=== PATIENT | female | born 1960 | race Caucasian/White ===

== ENCOUNTER 2020-08-16 12:39 | Outpatient (CLI) | payer BC, SELFPAY ==
--- NOTE | ~2020-08-16 | MM_ITS ---
EXAMINATION: MM screening [facility] BI [facility] l[facility] HISTORY: Screening TECHNIQUE: Craniocaudal and mediolateral oblique 3-D tomosynthesis images were obtained and synthetic 2-D images were generated. CAD analysis was submitted and interpreted. COMPARISON: Comparison to multiple prior studies sequentially, with oldest reviewed study dated 02/2016. BREAST PARENCHYMAL COMPOSITION: There are scattered areas of fibroglandular density. FINDINGS: There is no evidence of suspicious mass, calcification, or architectural distortion to sugg est malignancy in either breast. There has been no suspicious interval change. IMPRESSION: 1. No mammographic evidence of malignancy. 2. Recommend routine screening mammography in one year. BI-RADS Category 1: Negative Reviewed, dictated and finalized at location A.
== END 2020-08-16 12:40 | disposition home or self-care (01) ==
LOC: ANHIMG 12:43
PROVIDERS: PCP Internal Medicine; Visit Provider Obstetrics & Gynecology
DX: Z12.31 Encounter for screening mammogram for malignant neoplasm of breast (principal)
CPT/HCPCS: 77063; 77067

== ENCOUNTER 2021-10-18 14:25 | Outpatient (CLI) | payer BC, SELFPAY ==
[2021-10-18 18:48] LABS: Hematocrit 41.4 % (37.0-47.0); Hemoglobin 13.2 g/dL (12.0-15.0); Mean Corpuscular HGB Conc 31.9 g/dl (32-36); Mean Corpuscular Hemoglobin 32.1 pg (26-34); Mean Corpuscular Volume 100.7 fl (80-100); Mean Platelet Volume 10.9 fl (7.4-10.4); Platelet Count Result 299 k/mm3 (150-375); Red Blood Count 4.11 M/mm3 (4.2-5.4); White Blood Count 6.1 K/mm3 (4.5-10.0)
[2021-10-18 19:30] LABS: Vitamin D 25 Hydroxy 23.1 ng/mL
[2021-10-21 10:22] LABS: Testosterone Total 13 ng/dL (2-45)
== END 2021-10-18 14:26 | disposition home or self-care (01) ==
LOC: ANHASCLAB 14:27
PROVIDERS: PCP Internal Medicine; Visit Provider Obstetrics & Gynecology
DX: L65.9 Nonscarring hair loss, unspecified (principal)
CPT/HCPCS: 36415; 82306; 84403; 85027

== ENCOUNTER 2021-11-14 15:02 | Outpatient (CLI) | payer BC, SELFPAY ==
--- NOTE | ~2021-11-14 | MM_ITS ---
EXAMINATION: MM screening [facility] BI [facility] l[facility] HISTORY: Screening TECHNIQUE: Craniocaudal and mediolateral oblique 3-D tomosynthesis images were obtained and synthetic 2-D images were generated. CAD analysis was submitted and interpreted. COMPARISON: Comparison to multiple prior studies sequentially, with oldest reviewed study dated 09/2017. BREAST PARENCHYMAL COMPOSITION: There are scattered areas of fibroglandular density. FINDINGS: There is no evidence of suspicious mass, calcification, or architectural distortion to sugg est malignancy in either breast. There has been no suspicious interval change. IMPRESSION: 1. No mammographic evidence of malignancy. 2. Recommend routine screening mammography in one year. BI-RADS Category 1: Negative Reviewed, dictated and finalized at location A.
== END 2021-11-14 15:03 | disposition home or self-care (01) ==
LOC: ANHIMG 15:05
PROVIDERS: PCP Internal Medicine; Visit Provider Obstetrics & Gynecology
DX: Z12.31 Encounter for screening mammogram for malignant neoplasm of breast (principal); L65.9 Nonscarring hair loss, unspecified
CPT/HCPCS: 77063; 77067

== ENCOUNTER 2021-12-17 02:35 | Day surgery (SDC) | payer BC, SELFPAY ==
[2021-11-30 14:22] VITALS: BMI 29.5
[2021-12-17 10:04] VITALS: BP 118/70; PULSE 67; RESP 18; TEMP 36.2; O2SAT 99
[2021-12-17] MEDS: LACTATED RINGERS 1,000 ML 150 ML IV CONT (10:12)
--- NOTE | 2021-12-17 10:21 | WPDANESEPPF ---
Anes - Initial Pre Proc Eval Procedure: Operation Date: 12/17/21 11:00 Proposed Procedures p Screening Colonoscopy - Papi Garcia MD Date/Time: 12/17/21 10:21 Surgeon: Papi Garcia MD Pre Op Diagnosis: neoplasm screening Patient Data Age: 60 Gender: F Height: 1.63 m Weight: 79.7 kg Last Vital Signs Temp 97.1 F L 12/17/21 10:04 Pulse 67 12/17/21 10:04 Resp 18 12/17/21 10:04 BP 118/70 12/17/21 10:04 Pulse Ox 99 12/17/21 10:04 O2 Del Method Room Air 12/17/21 10:04 Allergies Allergy/AdvReac Type Severity Reaction Status Date / Time acetaminophen Allergy Unknown NAUSEA AND Verified 12/17/21 10:02 VOMITING cephalexin Allergy Unknown RASH Verified 12/17/21 10:02 propoxyphene Allergy Unknown NAUSEA AND Verified 12/17/21 10:02 VOMITING Home Medications Medication Instructions Recorded Confirmed Type tolterodine 4 mg capsule,extended 4 mg PO DAILY #90 caps 11/22/21 11/30/21 Rx release 24 hr Patient hx anesthesia problems: none Family hx anesthesia problems: none Results Review: All pre-operative results and documents have been reviewed as part of the pre-operative evaluation. [facility] Past Medical History Medical History (Updated 10/09/21 @ 17:20 by Lucho Dias MD) Cardiac arrhythmia (~2003) No significant past medical history Screening mammogram, encounter for Surgical History Surgical History H/O rhinoplasty H/O vein stripping (12/31/00) History of History of cardiac cath (05/02/04) negative History of D&C History of total abdominal hysterectomy (11/30/01) irregular bleeding History of tubal ligation Family History Family History Mother Cerebrovascular accident Heart disease Unknown Cancer Father Heart disease Grandparent Carcinoma of colon grandfather Diabetes mellitus grandmother Social History Social History (Updated 10/09/21 @ 16:48 by ZEE Garcia) Smoking status: Never smoker Alcohol intake: current Drinks per week: 10 Substance use: never Substance use type: does not use Living arrangements: with family Additional living arrangements comments: Additional occupation/education comments: RN Gender identity (if verbalized by the patient): Female Sexual Orientation (if Verbalized by the Patient): Straight or Heterosexual Spiritual care concerns: No Anes - Eval Final PreProcedure Day of Procedure 12/17/21 10:21 Patient weight: obese Heart: regular rate and rhythm Lungs: clear to auscultation Airway: Mallampati scale class II Neurological: alert and oriented Last oral intake: >/= 8 hours ASA classification: II Emergent: no Anesthetic plan: proceed Anesthesia type and monitoring: general GIVS and standard monitoring Results Review: All pre-operative results and documents have been reviewed as part of the pre-operative evaluation. Informed Consent: The patient's anesthetic plan and its attendant risks and benefits were discussed with the patient/family/POA. Questions were solicited and answers provided to the satisfaction of the patient/family/POA.
--- NOTE | 2021-12-17 10:34 | PM.HPGS ---
History of Present Illness History of Present Illness Consent: Risks, benefits, and alternatives have been discussed and questions answered. Patient agrees to proceed with procedure. Chief complaint: neoplasm screening Narrative: Tianna Cheung is a 60 year old female here for screening colonoscopy, last one 7 years ago. Review of Systems Constitutional: Constitutional: Denies headache(s) and Denies weakness Eyes: Eyes: Denies blurry vision ENT: Reports Normal hearing present, Denies headache(s) and Denies neck pain Cardiovascular: Cardiovascular: Denies chest pain and Denies dyspnea Respiratory: Respiratory: Denies dyspnea Gastrointestinal: Gastrointestinal: Reports no additional gastrointestinal complaints Genitourinary: Genitourinary: Denies dysuria Musculoskeletal: Musculoskeletal: Denies neck pain Integumentary/Breasts: Skin/Breast: Denies dry skin Neurologic: Reports Normal hearing present, Denies headache(s) and Denies weakness Psychiatric: Psychiatric: Denies anxiety Endocrine: Endocrine: Denies change in body appearance Hematologic/Lymphatic: Hematologic/Lymphatic: Denies easy bleeding Allergic/Immunologic: Allergic/Immunologic: Denies urticaria PMFSH Past Medical History Medical History (Updated 12/17/21 @ 10:34 by Papi Garcia MD) Cardiac arrhythmia (~2003) Colon cancer screening No significant past medical history Screening mammogram, encounter for Surgical History Surgical History H/O rhinoplasty H/O vein stripping (12/31/00) History of History of cardiac cath (05/02/04) negative History of D&C History of total abdominal hysterectomy (11/30/01) irregular bleeding History of tubal ligation Family History Family History Mother Cerebrovascular accident Heart disease Unknown Cancer Father Heart disease Grandparent Carcinoma of colon grandfather Diabetes mellitus grandmother Social History Social History (Updated 10/09/21 @ 16:48 by ZEE Garcia) Smoking status: Never smoker Alcohol intake: current Drinks per week: 10 Substance use: never Substance use type: does not use Living arrangements: with family Additional living arrangements comments: Additional occupation/education comments: RN Gender identity (if verbalized by the patient): Female Sexual Orientation (if Verbalized by the Patient): Straight or Heterosexual Spiritual care concerns: No Meds Home Medications and Allergies Home Medications Medication Instructions Recorded Confirmed Type tolterodine 4 mg capsule,extended 4 mg PO DAILY #90 caps 11/22/21 11/30/21 Rx release 24 hr Allergies Allergy/AdvReac Type Severity Reaction Status Date / Time acetaminophen Allergy Unknown NAUSEA AND Verified 12/17/21 10:02 VOMITING cephalexin Allergy Unknown RASH Verified 12/17/21 10:02 propoxyphene Allergy Unknown NAUSEA AND Verified 12/17/21 10:02 VOMITING Vital Signs Vital Signs - 24 hr 12/17/21 10:04 Temperature 97.1 F L Pulse Rate 67 Respiratory Rate 18 Blood Pressure 118/70 Pulse Oximetry 99 Oxygen Delivery Room Air Exam Const: General: comfortable and no acute distress HENMT: General nose exam: Normal nares present Eyes: General: appearance normal, both eyes and all related structures Neck: Neck: no JVD Resp: Auscultation: clear to auscultation bilaterally Cardio: Rate: regular rate Rhythm: regular rhythm GI: Inspection: non-distended GI Palp: Yes Soft to palpation Skin: General skin exam: normal color Neuro: General: gait normal Speech: normal speech Extrem: General: normal to inspection Psych: Mental Status: mental status grossly normal Assessment and Plan Assessment and plan (1) Colon cancer screening: Code(s): Z12.11 - Encount
[2021-12-17 10:58] VITALS: BP 102/64; PULSE 69; RESP 15; O2SAT 96
[2021-12-17 11:08] VITALS: BP 108/73; PULSE 100; RESP 18; O2SAT 100
[2021-12-17 11:18] VITALS: BP 114/74; PULSE 80; RESP 18; O2SAT 100
== END 2021-12-17 11:25 | disposition home or self-care (01) ==
PROVIDERS: PCP Internal Medicine; Visit Provider Internal Medicine Gastroenterology
PROC: 0DJD8ZZ Inspection of Lower Intestinal Tract, Via Natural or Artificial Opening Endoscopic (ICD-10-PCS; CPT 45378; principal; 2021-12-17 11:00)
DX: Z12.11 Encounter for screening for malignant neoplasm of colon (principal); I49.9 Cardiac arrhythmia, unspecified; E66.9 Obesity, unspecified; Z68.30 Body mass index [BMI] 30.0-30.9, adult
CPT/HCPCS: 45378; J2704; J7120

== ENCOUNTER 2022-06-11 15:13 | Outpatient (CLI) | payer BC, SELFPAY ==
[2022-06-11 15:41] LABS: Rheumatoid Factor < 12.0 IU/ML (<12)
[2022-06-11 15:42] LABS: CRP < 0.5 mg/dL (<1.0)
[2022-06-11 15:49] LABS: Erythrocyte Sedimentation Rate 13 mm/hr (0-20)
== END 2022-06-11 15:14 | disposition home or self-care (01) ==
PROVIDERS: PCP Internal Medicine; Visit Provider Podiatrist Foot & Ankle Surgery
DX: M19.90 Unspecified osteoarthritis, unspecified site (principal); M06.9 Rheumatoid arthritis, unspecified
CPT/HCPCS: 36415; 84550; 85652; 86038; 86140; 86430; 86812

== ENCOUNTER 2022-12-09 10:40 | Outpatient (CLI) | payer BC, SELFPAY ==
--- NOTE | ~2022-12-09 | US_ITS ---
Abdominal Sonogram: Real-time sonographic imaging of the abdomen was performed. Clinical History: Epigastric pain Findings: The liver appears normal with no evidence of mass lesion or bile duct dilatation. Main por danyell vein demonstrates normal direction of flow. The spleen is normal in size without evidence of foca l lesion. The gallbladder is well distended, and contains echogenic, shadowing gallstones. No gallbl adder wall thickening. The common bile duct measures 4 mm. The visualized pancreas, aorta, and IVC a re unremarkable. The right kidney measures 12.1 cm in length and the left kidney measures 12.0 cm. There is no hydronephrosis or renal calculus. Impression: Cholelithiasis. Reviewed, dictated and finalized at location . Impression: Cholelithiasis.
== END 2022-12-09 10:41 | disposition home or self-care (01) ==
PROVIDERS: PCP Internal Medicine; Visit Provider Internal Medicine
DX: R10.13 Epigastric pain (principal); K80.20 Calculus of gallbladder without cholecystitis without obstruction
CPT/HCPCS: 76700

== ENCOUNTER 2023-01-07 14:06 | Outpatient (CLI) | payer BC, SELFPAY ==
[2023-01-07 19:03] LABS: Alanine Aminotransferase 28 U/L (6-35); Albumin Level 4.4 g/dL (3.5-5.1); Alkaline Phosphatase 41 U/L (38-126); Amylase 93 U/L (30-110); Aspartate Amino Transferase 38 U/L (14-36); Bilirubin,Total 0.5 mg/dL (0.2-1.3); Lipase 114 U/L (23-300)
== END 2023-01-07 14:07 | disposition home or self-care (01) ==
LOC: ANHASCIMG 14:07 → ANHASCLAB 14:15
PROVIDERS: PCP Internal Medicine; Visit Provider Surgery
DX: K80.10 Calculus of gallbladder with chronic cholecystitis without obstruction (principal); Z01.818 Encounter for other preprocedural examination
CPT/HCPCS: 36415; 80076; 82150; 83690

== ENCOUNTER 2023-01-13 15:18 | Outpatient (CLI) | payer BC, SELFPAY ==
--- NOTE | ~2023-01-13 | MM_ITS ---
EXAMINATION: MM screening [facility] BI w luis HISTORY: Screening TECHNIQUE: Craniocaudal and mediolateral oblique 3-D tomosynthesis images were obtained and synthetic 2-D images were generated. CAD analysis was submitted and interpreted. COMPARISON: Comparison to multiple prior studies sequentially, with oldest reviewed study dated 09/2017. BREAST PARENCHYMAL COMPOSITION: There are scattered areas of fibroglandular density. FINDINGS: There is no evidence of suspicious mass, calcification, or architectural distortion to sugg est malignancy in either breast. There has been no suspicious interval change. IMPRESSION: 1. No mammographic evidence of malignancy. 2. Recommend routine screening mammography in one year. BI-RADS Category 1: Negative Reviewed, dictated and finalized at location A.
== END 2023-01-13 15:19 | disposition home or self-care (01) ==
LOC: ANHIMG 15:22
PROVIDERS: PCP Internal Medicine; Visit Provider Obstetrics & Gynecology
DX: Z12.31 Encounter for screening mammogram for malignant neoplasm of breast (principal)
CPT/HCPCS: 77063; 77067

== ENCOUNTER 2023-01-15 00:55 | Day surgery (SDC) | payer BC, SELFPAY ==
[2023-01-07 13:18] VITALS: BMI 29.5
--- NOTE | 2023-01-07 13:26 | PC.NURSE ---
Report to the Outpatient Waiting Room, entrance under the green pavilion located off [facility], at time _0900 on date _01/15/23_. Planned Procedure Time: _1100 _. Time changes happen often and if your time is changed the preop area will call you the afternoon before. - You and your visitor will be asked to self-screen and do not enter if you have any COVID symptoms. - A mask is optional within the hospital at this time. Patients may have clear liquids (water, carbonated beverages, clear teas, apple juice) until 3 hours prior to surgery with a maximum of 20 ounces. - No food from midnight until time of surgery - Infants may have breast milk until 4 hours before surgery, infant formula 6 hours prior to surgery. - Children will be allowed to drink immediately following surgery. If applicable, please bring a bottle or sippy cup to assist with drinking. Juice, water, soda, and popsicles are readily available. For infants on formula, please bring formula the day of surgery. Pacifiers are allowed. Take the following medications with a SIP of water the morning of surgery: NONE DO NOT STOP ANY OF YOUR OTHER PRESCRIPTION MEDICATIONS PRIOR TO SURGERY ?EXCEPT THE FOLLOWING Medications to discontinue per physician MELATONIN Date to take last dose 01/12/23 Please no make-up, nail togolese, hairspray, perfume, deodorant, or body powder the day of surgery. No jewelry (including any body piercings) or valuables the day of surgery, leave them at home. Please take a shower or bath the night before, or the morning of, surgery with HIBICLENS antibacterial soap. Wear comfortable, loose fitting clothing. Children are encouraged to wear pajamas. - Jewelry must be removed prior to entering the operating room. Rings and piercings that are not removed may be cut off. - The hospital will not accept responsibility for valuables. - Please leave all valuables, including medications, at home the day of surgery. If you are going home after surgery, a licensed rear load truck driver must drive you home. - NO public transportation without another adult if you receive anesthesia. - We recommend that an adult stay with you for 24 hours following discharge. - We also recommend that you do not drive, make important decision, drink alcoholic beverages, or take any drugs that were not prescribed by your health care provider for at least 24 hours after your discharge time. For Pediatric surgeries, we recommend two adults accompany the child home. Follow any additional instructions given to you from your surgeon. If you or anyone in your household have experienced Covid symptoms in the past week, please notify your surgeon or the nurse liaison at the phone number below for possible testing. Telephone instructions given to PATIENT__and asked if any additional questions and then verbalized understanding. Patient advised to call surgeon office or pre surgery nurse liaison [phone] if any additional questions.
[2023-01-15] VITALS (9 sets, daily range): BP systolic 110–129; BP diastolic 53–94; PULSE 67–92; RESP 12–16; TEMP 36.2–36.3; O2SAT 92–100
--- NOTE | 2023-01-15 08:53 | ECG_ITS ---
Measurements Intervals [place] Rate: 61 P: 36 OR: 171 QRS: 13 QRSD: 93 T: 31 QT: 422 QTc: 428 Interpretive Statements SINUS RHYTHM NO PREVIOUS ECG AVAILABLE FOR COMPARISON Electronically Signed On 01-15-2023 15:22:21 CDT by Carloz Reid M.D.
[2023-01-15] MEDS: ACETAMINOPHEN 500 MG TABLET 1000 MG PO (09:21)
--- NOTE | 2023-01-15 09:37 | WPDHPUPDATE1 ---
History and Physical Update Update Date/Time: 01/15/23 09:37 History and Physical has been reviewed, including an updated exam of the patient. There are NO changes in the patient's condition. Risks, benefits, and alternatives have been discussed and questions answered. Patient agrees to proceed with procedure.
[2023-01-15] MEDS: KETOROLAC 15 MG/ML VIAL (*BKC) IV PUSH (09:46)
--- NOTE | 2023-01-15 10:44 | WPDANESEPPF ---
Anes - Initial Pre Proc Eval Procedure: Operation Date: 01/15/23 11:00 Proposed Procedures p Laparoscopic Cholecystectomy - Gume Little MD Date/Time: 01/15/23 10:44 Surgeon: Gume Little MD Pre Op Diagnosis: chronic cholecystitis with stones Patient Data Age: 62 Gender: F Height: 1.63 m Weight: 77.2 kg Last Vital Signs Temp 36.3 C L 01/15/23 09:27 Pulse 70 01/15/23 09:27 Resp 16 01/15/23 09:27 BP 110/71 01/15/23 09:27 Pulse Ox 96 01/15/23 09:27 O2 Del Method Room Air 01/15/23 09:27 Allergies Allergy/AdvReac Type Severity Reaction Status Date / Time cephalexin Allergy Unknown RASH Verified 01/15/23 09:18 propoxyphene AdvReac Unknown NAUSEA AND Verified 01/15/23 09:18 VOMITING Home Medications Medication Instructions Recorded Confirmed Type tolterodine 4 mg capsule,extended 4 mg PO DAILY #90 caps 11/22/21 01/15/23 Rx release 24 hr melatonin 5 mg chewable tablet 5 mg PO HS 01/07/23 01/15/23 History Patient hx anesthesia problems: post op nausea/vomiting Family hx anesthesia problems: none Results Review: All pre-operative results and documents have been reviewed as part of the pre-operative evaluation. [facility] Past Medical History Medical History Cardiac arrhythmia (~2003) Colon cancer screening No significant past medical history Screening mammogram, encounter for Surgical History Surgical History H/O rhinoplasty H/O vein stripping (12/31/00) History of History of cardiac cath (05/02/04) negative History of D&C History of total abdominal hysterectomy (11/30/01) irregular bleeding History of tubal ligation Family History Family History Mother Cerebrovascular accident Heart disease Unknown Cancer Father Heart disease Grandparent Carcinoma of colon grandfather Diabetes mellitus grandmother Social History Social History Smoking status: Never smoker Alcohol intake: current Drinks per week: 8 Alcohol use details: WINE Substance use: never Substance use type: does not use Living arrangements: with family Additional living arrangements comments: Occupation/Education: occupation Additional occupation/education comments: RN Gender identity (if verbalized by the patient): Female Sexual Orientation (if Verbalized by the Patient): Straight or Heterosexual Spiritual care concerns: No Anes - Eval Final PreProcedure Day of Procedure 01/15/23 10:44 Patient weight: overweight Heart: regular rate and rhythm Lungs: clear to auscultation Airway: Mallampati scale class II Neurological: alert and oriented Last oral intake: >/= 8 hours ASA classification: II Emergent: no Anesthetic plan: proceed Anesthesia type and monitoring: general ETT and standard monitoring Results Review: All pre-operative results and documents have been reviewed as part of the pre-operative evaluation. Informed Consent: The patient's anesthetic plan and its attendant risks and benefits were discussed with the patient/family/POA. Questions were solicited and answers provided to the satisfaction of the patient/family/POA.
[2023-01-15] MEDS: SCOPOLAMINE 1.5 MG PATCH TRANSDERM (10:51)
[2023-01-15] MEDS: LACTATED RINGERS 1,000 ML 30 ML IV CONT (10:51)
[2023-01-15] MEDS: CLINDAMYCIN 900 MG/D5W 50 ML 900 MG/50 ML PIGGYBACK 50 MG IVPB (10:58)
--- NOTE | 2023-01-15 11:57 | P.OP_ITS ---
Procedure Note - Detailed Date of Procedure 01/15/23 Pre-op Diagnosis chronic cholecystitis with stones Post-op Diagnosis Same Procedure Performed Laparoscopic cholecystectomy Surgeon Gume Little MD [employer] CLAIMS ASSISTANT Anesthesia General and Local (0.25% Marcaine with epinephrine) Indications Patient has had postprandial epigastric pain that radiates to her back. Her imaging showed gallstones. She is taken to surgery now for laparoscopic cholecystectomy. Findings Patient had multiple gallstones in the gallbladder. Gallbladder wall was slightly thickened. It was evidence of chronic inflammation. There was no bi liary ductal dilatation. There were no liver abnormalities. Description of Procedure Patient was taken to surgery and induced into general anesthesia. The abdomen is prepped draped. Trocars were placed in the usual fashion using [employer] optical trocars and a 5 mm camera. The gallbladder was freed from omental adhesions. A laparoscopic aspirator was used and the gallbladder was decompressed. It was evident there were multiple stones in the gallbladder. The cholecystotomy was closed with a Vicryl endoloop. The gallbladder was then retracted anterosuperiorly. The remaining adhesions to the gallbladder were taken down using cautery and sharp dissection. Eventually the gallbladder was completely freed from adhesions. Traction was placed on the infundibulum. Dissection was then carried out in the cholecystohepatic triangle. The cystic duct and cystic artery were dissected out very clearly. The gallbladder was dissected off the liver at its lower 3rd. Critical view was achieved. We then securely clipped and divided the cystic duct and cystic artery. The gallbladder was then further dissected free of its remaining peritoneal attachments to the liver. Cautery was used for hemostasis. The gallbladder was then placed in an Endo-Catch bag. It was retrieved through the 10 11 epigastric trocar. I had to dilate the trocar sites slightly to accommodate the multiple stones in the gallbladder with its somewhat thickened wall. Once the gallbladder was removed, we replaced the epigastric trocar. We reinsufflated and reviewed the right upper quadrant. Some suctioning and irrigation were performed. Hemostasis looked very good. There was no evidence of bile leak. We then evacuated CO2 and removed the trocar sleeves. The fascia at the epigastric trocar site was closed with [id number] mattress sutures of 0 Vicryl. Subcutaneous sutures of 3-0 Vicryl were placed. All skin wounds were closed with subcuticular 4-0 Monocryl skin suture. The wounds were dressed with Exofin surgical adhesive. The patient was awakened and taken to recovery in good condition. Sponge needle counts were correct x2. Estimated Blood Loss -5 Drains No Packing No Pathology Yes (Gallbladder) Complications No immediate complications Condition Stable Disposition PACU [facility] Billing Surgery - Charge Forward: Surgery Billing (Laparoscopic cholecystectomy)
[2023-01-15] MEDS: oxyCODONE HCL (*CRX) 5 MG TAB IR PO (13:30)
[2023-01-15] MEDS: ONDANSETRON INJ 4 MG/2 ML VIAL IV PUSH (13:59)
== END 2023-01-15 14:10 | disposition home or self-care (01) ==
PROVIDERS: PCP Internal Medicine; Visit Provider Surgery
PROC: 0FT44ZZ Resection of Gallbladder, Percutaneous Endoscopic Approach (ICD-10-PCS; CPT 47562; principal; 2023-01-15 11:00)
DX: K80.10 Calculus of gallbladder with chronic cholecystitis without obstruction (principal)
CPT/HCPCS: 47562; 36415; 80076; 82150; 83690; 86850; 86900; 86901; 88304; 93005; A9270; C1713; J1100; J1170; J1885; J2250; J2405; J2704; J3010; J7120

== ENCOUNTER 2023-02-27 15:52 | Outpatient (CLI) | payer BC, SELFPAY ==
--- NOTE | ~2023-02-27 | MR_ITS ---
EXAMINATION: MR ankle LT wo con DATE: 02/27/2023 16:32 INDICATION: Left ankle tendinopathy. Left ankle pain and swelling. TECHNIQUE: Magnetic resonance imaging (MRI) of the left ankle was performed without intravenous contr ast. Sequences included sagittal PD-weighted FS FSE, sagittal PD-weighted FSE, coronal PD-weighted FS FSE, coronal PD-weighted FSE, axial PD-weighted FS FSE, and axial PD-weighted FSE. COMPARISON: None. FINDINGS: Medial ankle ligaments: The superficial and deep components of the deltoid ligament are normal. Lateral ankle ligaments: Anterior and posterior talofibular ligaments, calcaneofibular ligament, and anterior and posterior ti biofibular ligaments are intact. Tendons: The medial and anterior ankle tendons are normal. There is a longitudinal split tear of peroneus brev is tendon. There is mild peroneus longus tendinopathy. There is non-insertional Achilles tendinopathy characterized by enlargement and increased signal intensity with small partial tear. A skin marker o verlies the Achilles tendon. Plantar fascia: Normal. There is an enthesophyte at the calcaneal attachment. Bones/other: Bone alignment is normal. There is mild ankle joint osteoarthritis. Fluid: There is a small subtalar joint effusion. IMPRESSION: 1. Non-insertional Achilles tendinopathy and small partial tear. 2. Longitudinal split tear of peroneus brevis tendon. 3. Mild ankle joint osteoarthritis. Reviewed, dictated and finalized at location E.
== END 2023-02-27 15:53 ==
PROVIDERS: PCP Podiatrist Foot & Ankle Surgery; Visit Provider Podiatrist Foot & Ankle Surgery
DX: M76.62 Achilles tendinitis, left leg (principal); M19.072 Primary osteoarthritis, left ankle and foot
CPT/HCPCS: 73721

== ENCOUNTER 2024-03-02 15:51 | Outpatient (CLI) | payer BC, SELFPAY ==
--- NOTE | ~2024-03-02 | MM_ITS ---
EXAMINATION: MM screening [facility] HISTORY: Screening TECHNIQUE: Craniocaudal and mediolateral oblique 3-D tomosynthesis images were obtained and synthetic 2-D images were generated. CAD analysis was submitted and interpreted. COMPARISON: Comparison to multiple prior studies sequentially, with oldest reviewed study dated 05/03. BREAST PARENCHYMAL COMPOSITION: Not dense: There are scattered areas of fibroglandular density. FINDINGS: There is no evidence of suspicious mass, calcification, or architectural distortion to sugg est malignancy in either breast. There has been no suspicious interval change. IMPRESSION: 1. No mammographic evidence of malignancy. 2. Recommend routine screening mammography in one year. BI-RADS Category 1: Negative Reviewed, dictated and finalized at location B.
== END 2024-03-02 15:52 | disposition home or self-care (01) ==
LOC: ANHIMG 15:54
PROVIDERS: PCP Podiatrist Foot & Ankle Surgery; Visit Provider Obstetrics & Gynecology
DX: Z12.31 Encounter for screening mammogram for malignant neoplasm of breast (principal)
CPT/HCPCS: 77063; 77067

== ENCOUNTER 2024-03-09 12:57 | Outpatient (CLI) | payer BC, SELFPAY ==
[2024-03-09 18:52] LABS: Basophils Percent Auto 0.5 % (0.2-1.2); Eosinophils Percent Auto 0.5 % (0-4.4); Hematocrit 39.9 % (37.0-47.0); Hemoglobin 12.9 g/dL (12.0-15.0); Immature Granulocyte Absolute 0.02 K/mm3 (0.00-0.031); Immature Granulocyte Percent A 0.3 % (0-0.5); Lymphocytes Percent Auto 28.9 % (18.3-44.2); Mean Corpuscular HGB Conc 32.3 g/dl (32-36); Mean Corpuscular Hemoglobin 32.4 pg (26-34); Mean Corpuscular Volume 100.3 fl (80-100); Mean Platelet Volume 10.5 fl (7.4-10.4); Monocytes Absolute Auto 0.4 K/mm3 (0.1-0.6); Monocytes Percent Auto 6.6 % (2.6-8.5); Neutrophils Absolute Auto 3.9 K/mm3 (1.3-6.7); Neutrophils Percent Auto 63.2 % (45.5-73.1); Platelet Count Result 325 k/mm3 (150-375); Red Blood Count 3.98 M/mm3 (4.2-5.4); Red Cell Distribution Width 12.9 % (11.5-14.5); White Blood Count 6.2 K/mm3 (4.5-10.0)
[2024-03-09 19:04] LABS: Alanine Aminotransferase 25 U/L (6-35); Albumin Level 4.2 g/dL (3.5-5.1); Alkaline Phosphatase 49 U/L (38-126); Anion Gap 5 mmol/L (4-12); Aspartate Amino Transferase 43 U/L (14-36); Bilirubin,Total 0.7 mg/dL (0.2-1.3); Blood Urea Nitrogen 21 mg/dL (7-17); Carbon Dioxide 31 mmol/L (22-30); Chloride 101 mmol/L (98-107); Estimated Glomerular Filt Rate > 60; Glucose 90 mg/dL (65-110); Potassium 4.3 mmol/L (3.4-5.0); Sodium 137 mmol/L (137-145)
[2024-03-09 19:04] LABS: Add Urine Microscopic? NO; Appearance Urine Clear (Clear); Bilirubin Urine Negative (Negative); Blood Urine Negative (Negative); Color Urine Yellow (Yellow); Glucose Urine UA Negative (Negative); Ketones Urine Negative (Negative); Leukocyte Esterase Ur Negative LEU/UL (Negative); Nitrate Urine Negative (Negative); Protein Urine Negative (Negative); Urobilinogen Urine 0.2 mg/dL (<2.0)
== END 2024-03-09 12:58 | disposition home or self-care (01) ==
LOC: ANHASCLAB 13:01
PROVIDERS: PCP Podiatrist Foot & Ankle Surgery; Visit Provider Internal Medicine
DX: E66.3 Overweight (principal)
CPT/HCPCS: 36415; 80053; 81003; 84443; 85025

== ENCOUNTER 2025-03-16 12:28 | Outpatient (CLI) | payer BC, SELFPAY ==
--- NOTE | ~2025-03-16 | MM_ITS ---
EXAMINATION: MM screening mercedes BI w luis HISTORY: Screening TECHNIQUE: Craniocaudal and mediolateral oblique 3-D tomosynthesis images were obtained and synthetic 2-D images were generated. CAD analysis was submitted and interpreted. COMPARISON: 01/13/2023 BREAST PARENCHYMAL COMPOSITION: There are scattered areas of fibroglandular density. FINDINGS: There is no evidence of suspicious mass, calcification, or architectural distortion to suggest malignancy. There has been no suspicious interval change. IMPRESSION: 1. No mammographic evidence of malignancy. Recommend routine screening mammography in one year. BI-RADS Category 2: Benign finding(s) Reviewed, dictated and finalized at location Q. IMPRESSION: 1. No mammographic evidence of malignancy. Recommend routine screening mammogra phy in one year. BI-RADS Category 2: Benign finding(s)
--- OUTSIDE RECORDS SUMMARY | 2025-03-16 14:08 | XMS_ITS | Encounter Summary ---
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 Name Role Phone Cornel Dunn MD Primary Care Provider [phone] Encounter Details Date Type Department Care Team (Latest Contact Info) Description 02/11/2025 Results Follow-Up [facility] [address] [place] [address] Cornel Dunn MD [facility] [address] [place] [address] CBC with auto differential, Comprehensive metabolic panel, TSH, Additional followed-up results: 2 Social History Tobacco Use Types Packs/Day Years Used Date Smoking Tobacco: Never Comments Unknown Sex and Gender Information Value Date Recorded Sex Assigned at Not on file Legal Sex Female 7:22 PM C[employer]UL[employer] Gender Identity Not on file Sexual Orientation Not on file documented as of this encounter Plan of Treatment Scheduled Procedures Name Priority Associated Diagnoses Date/Ti me COLONOSCOPY History of colon polyps documented as of this encounter Visit Diagnoses Not on filedocumented in this encounter Care Teams Set Up Mechanic Stamping Mach[employer] Relationship Specialty Start Date End Date Cornel Dunn MD PCP - General 10/06/14 documented as of this encounter
--- OUTSIDE RECORDS SUMMARY | 2025-03-16 14:08 | XMS_ITS | Clinical Summary ---
Author Organization [facility] [address] Address [address] [place] [address] Care Team Providers Care Tire Repairer Name Role Phone Cornel Dunn MD Primary Care Provider [phone] Allergies Active Allergy Reactions Criticality Noted Date Comments Cephalexin Rash Medium Propoxyphene N-Acetaminophen Vomiting Low 021 Medications tolterodine LA (DETROL LA) 4 mg 24 hr capsule tolterodine ER 4 mg capsule,extended release 24 hr take 1 tablet by mouth daily Active semaglutide (Wegovy) 1 mg/0.5 mL auto-injector INJECT 1 MG UNDER THE SKIN EVERY 7 DAYS 2 mL 3 5 Active Active Problems No known active problems Encounters Date Type Department Care Team Description 02/11/2025 Results Follow-Up [facility] [address] [place] [id number] Cornel Dunn MD CBC with auto differential, Comprehensive metabolic panel, TSH, Additional followed-up results: 2 02/10/2025 6:07 PM CDT - 02/10/2025 11:59 PM CDT Hospital Encounter [address] [address] Routine general medical examination at a health care facility; Encounter for hepatitis C screening test for low risk patient Discharge Disposition: Discharge to home or self care 02/10/2025 2:00 PM CDT Office Visit [facility] [address] [place] [address] [place] [address] Cornel Dunn MD Routine general medical examination at a health care facility (Primary Dx); Encounter for hepatitis C screening test for low risk patient from Last 3 Months Immunizations Immunization Administration Dates Next Due COVID-19 mRNA (PFIZER) 0.3 m L (30 mcg) vaccine (12 years and up) 06/13/2023 Pfizer SARS-CoV-2 Monovalent Vaccination (12+ Yrs) PURPLE 07/23/2020,06/25/2020 Tdap 02/10/2025 ZOSTER Recombinant 06/13/2023,11/19/2022 Surgical History Surgery Date Site/Laterality Comments TOTAL ABDOMINAL HYSTERECTOMY Hysterectomy, total NOSE SURGERY VEIN LIGATION AND STRIPPING SECTION Medical History Medical History Date Comments Asthma Asthma Hx Other Medical X2 1983 and 01/1994 Hx Other Medical Rhinoplasty 197 9 Urinary frequency Family History Medical History Relation Name Comments Heart disease Father Hyperlipidemia Mother Mitral valve prolapse Mother Stroke Mother Heart disease Other Family history of Heart problems; Relation Name Status Comments Father Mother Other Social History Tobacco Use Types Packs/Day Years Used Date Smoking Tobacco: Never Tobacco Cessation:Counseling Given: Not Answered Comments Unknown Sex and Gender Information Value Date Recorded Sex Assigned at Not on file 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 Gender Identity Not on file Sexual Orientation Not on file Obstetrics History Last Filed Vital Signs Vital Sign Reading Time Taken Comments Blood Pressure 110/72 02/10/2025 1:57 PM CDT Pulse 89 02/10/2025 1:57 PM CDT Temperature - - Respiratory Rate - - Oxygen Saturation - - Inhaled Oxygen Concentration - - Weight 70.3 kg (155 lb) 02/10/2025 1:57 PM CDT Height 162.6 cm (5' 4) 02/10/2025 1:57 PM CDT Body Mass Index 26.61 02/10/2025 1:57 PM CDT Plan of Treatment Scheduled Procedures Name Priority Associated Diagnoses Date/Ti me COLONOSCOPY History of colon polyps Health Maintenance Due Date Last Done Comments Depression Screening 1960 Hepatitis B Screening 1978 Covid-19 Vaccine ( season) 2025 06/13/2023, 05/09/2021, 07/23/2020, Additional history exists Influenza Vaccine (#1) 2025 Breast Cancer Screening-Mammogram 03/02/2025 03/02/2024, 06/11/2020 Regular Well Visit/Exam 18-64 02/10/2026 02/10/2025, 01/09/2021 Colon Cancer Screening-Colonoscopy 12/18/2031 12/17/2021 DTaP/Tdap/Td Vaccine (2 - Td or Tdap) 02/10/2035 02/10/2025 Zoster Vaccine Completed 06/13/2023, 11/19/2022 Hepatitis C Screening Completed 02/10/2025 Pneumococcal vaccine <65 Aged Out No longer eligible based on patient's age to complete this topic Procedures Procedure Name Priority Date/Time Associated Diagnosis Comments LIPID PANEL Routine 02/10/2025 2:32 PM CDT Routine general medical examination at a health care facility Encounter for hepatitis C screening test for low risk patient TSH Routine 02/10/2025 2:32 PM CDT Routine general medical examination at a health care facility Encounter for hepatitis C screening test for low risk patient COMPREHENSIVE METABOLIC PANEL Routine 02/10/2025 2:32 PM CDT Routine general medical examination at a health care facility Encounter for hepatitis C screening test for low risk patient CBC WITH AUTO DIFFERENTIAL Routine 02/10/2025 2:32 PM CDT Routine general medical examination at a health care facility Encounter for hepatitis C screening test for low risk patient HEPATITIS C ANTIBODY Routine 02/10/2025 2:32 PM CDT Routine general medical examination at a health care facility Encounter for hepatitis C screening test for low risk patient URINALYSIS AND REFLEX TO MICROSCOPIC AND CULTURE Routine 02/10/2025 2:32 PM CDT Routine general medical examination at a health care facility Encounter for hepatitis C screening test for low risk patient SCREENING MAMMOGRAM 2D BILATERAL Schedule Routine, Read Routine (OP Routine) 06/11/2020 from Last 3 Months or Most Recently Relevant to Health Maintenance Results * CBC with auto differential (02/10/2025 2:32 PM CDT) Pathologist [facility] WBC 6.4 3.5 - 10.0 K/uL [facility] RBC 4.03 3.50 - 5.50 M/uL [facility] Hemoglobin 12.8 11.5 - 16.5 g/dL [facility] Hematocrit 37.5 35.0 - 55.0 % [facility] MCV 93.0 75.0 - 100.0 fL [facility] MCH 31.80 25.00 - 35.00 pg [facility] MCHC 34.10 31.00 - 38.00 g/dL [facility] RDW 13.1 11.0 - 16.0 % [facility] Platelets 325 140 - 400 K/uL [facility] MPV 8.8 8.0 - 11.0 fL [facility] Granulocyte, Absolute 4.3 1.2 - 8.0 K/uL [facility] Lymphocyte, Absolute 1.7 0.5 - 5.0 K/uL [facility] Monocyte, Absolute 0.4 0.1 - 1.5 K/uL [facility] Granulocyte, Percentage 67.2 35.0 - 80.0 % [facility] Lymphocyte, Percentage 26.9 15.0 - 50.0 % [facility] Monocyte, Percentage 5.9 2.0 - 15.0 % [facility] Blood 02/10/2025 2:32 PM CDT 02/10/2025 2:59 PM CDT us Cornel Dunn MD LAB BLOOD ORDERABLES Final Re sult [facility] [address] [phone], [facility] * Hepatitis C antibody Blood (02/10/2025 2:32 PM CDT) Pathologist [facility] A-HCV II 0.06 Negative <0.90 [facility] Comment: <=0.9 negative 0.9-<1.0 borderline >= 1 positive Blood 02/10/2025 2:32 PM CDT 02/10/2025 2:59 PM CDT Cornel Dunn MD LAB MICROBIOLOGY - GENERAL OR DERABLES Final Result Performing Organization Address [facility]/ZIP Co de Phone Number JENNIFER AGU[facility]AR [address] [facility] [address] * TSH (02/10/2025 2:32 PM CDT) TSH 1.54 0.27 - 4.20 uIU/mL [facility] Blood 02/10/2025 2:32 PM CDT 02/10/2025 2:59 PM CDT Cornel Dunn MD LAB BLOOD ORDERABLES Final Re sult Performing Organization Address [facility] Co de Phone Number JENNIFER AGUILAR [address] [facility] [address] * (ABNORMAL) Lipid panel (02/10/2025 2:32 PM CDT) Triglyceride 80 0 - 150 mg/dL [facility] Cholesterol 219(H) 0 - 200 mg/dL [facility] HDL 76 >45 mg/dL [facility] LDL-Calculated 128 mg/dL [facility] CHOL/HDL Risk Ratio 3 Ratio [facility] LDL/HDL Risk Ratio 2 Ratio [facility] Blood 02/10/2025 2:32 PM CDT 02/10/2025 2:59 PM CDT Cornel Dunn MD LAB BLOOD ORDERABLES Final Re sult Performing Organization Address [facility]/ZIP Co de Phone Number JENNIFER AGUILAR [address] [facility] [address] * (ABNORMAL) Comprehensive metabolic panel (02/10/2025 2:32 PM CDT) Glucose 85 74 - 200 mg/dL [facility] BUN 13(L) 18 - 23 mg/dL [facility] Creatinine 0.6(L) 0.7 - 1.3 mg/dL [facility] BUN/Creat Ratio 21 Ratio [facility] Bilirubin, Total 0.5 0.0 - 1.2 mg/dL [facility] AST (SGOT) 22 0 - 32 U/L [facility] ALT (SGPT) 16 10 - 35 U/L [facility] Alkaline phosphatase 49 35 - 104 U/L [facility] Calcium 9.5 8.8 - 10.2 mg/dL [facility] Sodium 138 135 - 145 mEq/L [facility] Potassium 4.1 3.5 - 5.1 mEq/L [facility] Chloride 102 98 - 107 mEq/L [facility] CO2 28.7 22.0 - 32.0 mEq/L [facility] Anion Gap 8 3 - 12 mEq/L [facility] Total Protein 6.3 6.0 - 8.1 g/dL [facility] Albumin 4.3 3.5 - 5.2 g/dL [facility] Globulin 1.9 g/dL [facility] Albumin/Globulin 2.2 Ratio [facility] eGFR 99.04 [facility] Blood 02/10/2025 2:32 PM CDT 02/10/2025 2:59 PM CDT us Cornel Dunn MD LAB BLOOD ORDERABLES Final Re sult [facility] [address] [phone] * (ABNORMAL) Urinalysis reflex to microscopic and culture Urine (02/10/2025 2:32 PM CDT) Color, ur Yellow Yellow Clarity, ur Clear Clear [facility] Specific gravity, ur 1.033(H) 1.003 - 1.030 [facility] pH, urine 5.5 [facility] Comment: Interpretive Data U rine pH is affected by diet, medications, systemic acid-base disturbances, and renal tubular function. pH may affect urinary stone formation. For example, urine pH below 6.0 may help reduce the tendency for calcium phosphate stones and pH greater than 6.0 may reduce the tendency for uric acid stone formation. Source: [facility] Current Interpretive Data was last revised on 2017 Protein, ur ql Trace Negative [facility] Glucose, ur ql Negative Negative [facility] Ketones, ur Negative Negative [facility] Bilirubin, ur Negative Negative [facility] Blood, ur Negative Negative [facility] Urobilinogen, ur <2.0 <2.0 mg/dL [facility] Nitrite, ur Negative Negative [facility] Leukocyte esterase, ur Negative Negative [facility] UA reflex comment Reflex conditions for microscopic UA and culture not met. [facility] Urine 02/10/2025 2:32 PM CDT 02/10/2025 6:51 PM CDT Cornel Dunn MD LAB MICROBIOLOGY - GENERAL OR DERABLES Final Result [facility] Department [place] [address] * Screening Mammogram 2D Bilateral (06/11/2020) Anatomical Region Laterality Modality Breast Bilateral Mammography Narrative 06/11/2020 [place] [address] woodward Historical Provider [facility] MAMMO PROCEDURES Leatha l Result from Last 3 Months or Most Recently Relevant to Health [place] [address] [facility] [place] [address] ANTH ACCESS CHOICE Care Teams Tire Repairer Relationship Specialty Start Date End Date Cornel Dunn MD PCP - General 10/06/14
--- OUTSIDE RECORDS SUMMARY | 2025-03-16 14:08 | XMS_ITS | Clinical Summary ---
Author Organization [facility] Address [address] [place] [address] Care Team Providers Care Credit Rating Checker Name Role Phone Unavailable Primary Care Provider Unavailabl e Source Comments [facility],non-owned Affiliates and Associated Physician Practices is amultiple site organization consisting of ambulatory clinics and hospital sitesin [place], [place], [place] and [place]. This disclosure is being madepursuant to the Care Everywhere program and may not contain all information available regarding this patient. 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 Gender Identity Not on file Sexual Orientation Not on file Plan of Treatment Health Maintenance Due Date Last Done Comments COLOGUARD (AGES 45-75) - COL ON CA SCREENING 1960 COLON MONITORING 1960 COLONOSCOPY - COLON CA SCREENING 1960 CT COLONOGRAPHY - COLON CA SCREENING 1960 Colorectal Cancer Screening 1960 FIT - COLON CA SCREENING 1960 FLEX SIG - COLON CA SCREENING 1960 LIPID TESTING 1960 MAMMOGRAM 1960 HIV SCREENING 12/29/1975 HEPATITIS C SCREENING 12/24/1978 DTAP/TDAP/TD VACCINES (1 - Tdap) 12/29/1979 PAP SMEAR 04/19/2000 04/19/1997 PNEUMOCOCCAL VACCINE 50+ (1 of 1 - PCV) 2010 ZOSTER VACCINE (1 of 2) 2010 DEPRESSION SCREENING 06/02/2024 COVID-19 VACCINE (1 - 2023-2 5 season) 2025 INFLUENZA VACCINE (#1) 2025 Respiratory Syncytial Virus (RSV) Vaccine Pt: or over 60 yrs (1 - 1-dose 75+ series) 12/29/2035 HEPATITIS B VACCINE Aged Out No longe r eligible based on patient's age to complete this topic HIB VACCINE Aged Out No longer eligi ble based on patient's age to complete this topic HPV VACCINE Aged Out No longer eligi ble based on patient's age to complete this topic MENINGOCOCCAL (Group B) VACC INE SHARED DECISION-MAKING Aged Out No longer eligibl e based on patient's age to complete this topic MENINGOCOCCAL GROUPS A/C/Y/W VACCINE Aged Out No longer eligible b ased on patient's age to complete this topic Procedures Procedure Name Priority Date/Time Associated Diagnosis Comments CYTOLOGY SMEAR PAP TASHIA 04/19/1997 12 :19 PM CONSTRUCTION EQUIPMENT TECHNICIAN from Last 3 Months or Most Recently Relevant to Health Maintenance Results * CYTOLOGY SMEAR PAP (04/19/1997 12:19 PM CONSTRUCTION EQUIPMENT TECHNICIAN) Result CASE NUMBER [id number] Comment: ORDERING PHYSICIAN MOISE CAZARES SPECIMEN TYPE PAP Smear Date 04/21/1997 Procedure Cervical/Endocervical, 2 smears received Specimen Adequacy Satisfactory for Evaluation Categorization Within Normal Limits Snomed. 05/03/1997 1114 <1> Is Technician Allison Christianson (ASCP) Pathologist. Chad Naidu M.D. PAP Footnote The PAP smear is only a screening procedure to aid in the detection of cervical cancer and its precursors. It is not a diagnostic procedure and should not be used as the sole means to detect cervical cancer. Both false negative and false positive results have been experienced. MISCELLANEOUS SAMPLES / Unknown 04/19/1997 12:19 PM CONSTRUCTION EQUIPMENT TECHNICIAN 04/22/1997 12:19 PM CONSTRUCTION EQUIPMENT TECHNICIAN us Historical Provider LAB - PATHOLOGY/CYTOLOGY ORDERABLES Final Result from Last 3 Months or Most Recently Relevant to Health Maintenance [place] [address] FINN, [address]
== END 2025-03-16 12:29 | disposition home or self-care (01) ==
PROVIDERS: PCP Internal Medicine; Visit Provider Obstetrics & Gynecology
DX: Z12.31 Encounter for screening mammogram for malignant neoplasm of breast (principal)
CPT/HCPCS: 77063; 77067